=== PATIENT | female | born 1970 | race Two or more races ===

== ENCOUNTER → 2017-09-14 | Outpatient (CLI) | payer OTHER | LOC: M RAD 12:15 | DX: R10.32 Left lower quadrant pain (principal); Z96.9 Presence of functional implant, unspecified | CPT/HCPCS: 74021 ==

== ENCOUNTER → 2017-09-20 | Outpatient (REF) | payer OTHER ==
[2017-09-20 13:35] LABS: AMORPHOUS SEDIMENT SMALL (NEGATIVE); APPEARANCE, URINE CLOUDY (CLEAR); BACTERIA, URINE AUTO 1+ (NEGATIVE); BILIRUBIN, URINE AUTO NEGATIVE (NEGATIVE); BLOOD, URINE BLOOD 1+ (NEGATIVE); COLOR, URINE AMBER (YELLOW); GLUCOSE, URINE (UA) AUTO NEGATIVE (NEGATIVE); KETONE, URINE AUTO TRACE mg/dL (NEGATIVE); LEUKOCYTE ESTERASE, URINE AUTO 1+ (NEGATIVE); MUCUS, URINE SMALL (NEGATIVE); NITRITE, URINE AUTO POSITIVE (NEGATIVE); PROTEIN, URINE AUTO NEGATIVE (NEGATIVE); RBC, URINE AUTO 2 /HPF (0-3); SPECIFIC GRAVITY URINE AUTO 1.027 (1.002-1.035); SQUAMOUS EPITHELIAL CELL UR AU 9 /HPF (0-6); WBC, URINE AUTO 7 /HPF (0-3)
== END ==
LOC: M SMT 13:02
DX: R32 Unspecified urinary incontinence (principal)

== ENCOUNTER 2017-09-27 09:36 | Day surgery (SDC) | payer OTHER ==
[2017-09-27] MEDS: NS 1,000 ML IV (11:18)
[2017-09-27] MEDS ORDERED: LIDOCAINE 2% INJ 100 MG/5 ML SDV (FOR ANES.) As Ordered (12:07)
[2017-09-27] MEDS ORDERED: PROPOFOL 500 MG/50 ML VIAL As Ordered (12:07)
== END 2017-09-27 13:20 | disposition home or self-care (01) ==
LOC: M OPP 09:36
DX: R12 Heartburn (principal); K21.9 Gastro-esophageal reflux disease without esophagitis; M19.90 Unspecified osteoarthritis, unspecified site; M54.2 Cervicalgia; M54.89 Other dorsalgia; M79.7 Fibromyalgia; F32.9 Major depressive disorder, single episode, unspecified; F41.9 Anxiety disorder, unspecified; G43.909 Migraine, unspecified, not intractable, without status migrainosus; Z96.9 Presence of functional implant, unspecified; Z98.1 Arthrodesis status; F17.210 Nicotine dependence, cigarettes, uncomplicated; Z88.8 Allergy status to other drugs, medicaments and biological substances; Z88.1 Allergy status to other antibiotic agents; Z88.2 Allergy status to sulfonamides; Z79.899 Other long term (current) drug therapy
CPT/HCPCS: 43235

== ENCOUNTER → 2017-10-25 | Day surgery (SDC) | payer OTHER | END | disposition home or self-care (01) | LOC: M OPP 10:41 | DX: K59.00 Constipation, unspecified (principal); K92.1 Melena; R12 Heartburn; K21.9 Gastro-esophageal reflux disease without esophagitis; M54.9 Dorsalgia, unspecified; M79.7 Fibromyalgia; F41.9 Anxiety disorder, unspecified; F32.9 Major depressive disorder, single episode, unspecified; G43.909 Migraine, unspecified, not intractable, without status migrainosus; Z97.8 Presence of other specified devices; R32 Unspecified urinary incontinence; Z87.19 Personal history of other diseases of the digestive system; Z98.1 Arthrodesis status; F17.210 Nicotine dependence, cigarettes, uncomplicated; Z88.8 Allergy status to other drugs, medicaments and biological substances; Z88.1 Allergy status to other antibiotic agents; Z88.2 Allergy status to sulfonamides; Z79.899 Other long term (current) drug therapy; Z91.018 Allergy to other foods | CPT/HCPCS: 45378 ==

== ENCOUNTER 2018-01-03 09:41 | Day surgery (SDC) | payer OTHER ==
[2018-01-03] MEDS: NS 1,000 ML IV (10:40)
[2018-01-03] MEDS ORDERED: LIDOCAINE 2% INJ 100 MG/5 ML SDV (FOR ANES.) As Ordered (12:05)
[2018-01-03] MEDS ORDERED: PROPOFOL 500 MG/50 ML VIAL As Ordered (12:05)
== END 2018-01-03 12:53 | disposition home or self-care (01) ==
LOC: M OPP 09:41
DX: K63.5 Polyp of colon (principal); K59.00 Constipation, unspecified; K62.5 Hemorrhage of anus and rectum; K21.9 Gastro-esophageal reflux disease without esophagitis; F41.9 Anxiety disorder, unspecified; F32.9 Major depressive disorder, single episode, unspecified; M79.7 Fibromyalgia; G43.909 Migraine, unspecified, not intractable, without status migrainosus; R32 Unspecified urinary incontinence; Z79.899 Other long term (current) drug therapy; Z88.8 Allergy status to other drugs, medicaments and biological substances; Z91.018 Allergy to other foods; F17.210 Nicotine dependence, cigarettes, uncomplicated; Z98.890 Other specified postprocedural states; Z83.3 Family history of diabetes mellitus; Z96.89 Presence of other specified functional implants
CPT/HCPCS: 45385

== ENCOUNTER → 2018-12-01 | Outpatient (REF) | payer OTHER ==
[~2018-12-01] MED LIST: BACL1TAB9 PO; BUPR15TA PO; DITR5TAB PO; DULC5TAB PO; IMIT50TA PO; LINZ145C PO; LORA1TAB12 PO; MELO7.5T7 PO; MIRA33504 PO; MYRB25TA PO; OMEP40CA2 PO; PREG100CA PO; PRIS50TA PO; RANI1TAB38 PO; SENN1TAB38 PO; SENO8.6T5 PO; SERO1TAB2 PO; TRAZ25TA PO
[2018-12-01 19:26] LABS: APPEARANCE, URINE HAZY (CLEAR); BACTERIA, URINE AUTO 3+ (NEGATIVE); BILIRUBIN, URINE AUTO NEGATIVE (NEGATIVE); BLOOD, URINE BLOOD NEGATIVE (NEGATIVE); COLOR, URINE YELLOW (YELLOW); GLUCOSE, URINE (UA) AUTO NEGATIVE (NEGATIVE); KETONE, URINE AUTO NEGATIVE (NEGATIVE); LEUKOCYTE ESTERASE, URINE AUTO NEGATIVE (NEGATIVE); MUCUS, URINE SMALL (NEGATIVE); NITRITE, URINE AUTO POSITIVE (NEGATIVE); PROTEIN, URINE AUTO NEGATIVE (NEGATIVE); RBC, URINE AUTO 2 /HPF (0-3); SPECIFIC GRAVITY URINE AUTO 1.024 (1.002-1.035); SQUAMOUS EPITHELIAL CELL UR AU 5 /HPF (0-6); UROBILINOGEN, URINE AUTO 0.2 mg/dL (0.0-2.0); WBC, URINE AUTO 2 /HPF (0-3)
== END ==
LOC: M SMT 17:00
PROVIDERS: ATTEND Nurse Practitioner Women's Health
DX: R39.15 Urgency of urination (principal)

== ENCOUNTER → 2019-10-23 | Outpatient (CLI) | payer OTHER ==
[~2019-10-23] MED LIST changes: -LORA1TAB12 PO; +LORA1TAB4 PO; -OMEP40CA2 PO; +OMEP40CA97 PO; +TRAZ1TAB11 PO; -TRAZ25TA PO
--- NOTE | 2019-10-23 15:45 | REP ---
Clinical: Cough. Technique: PA and lateral. Comparison: None. Findings: Mediastinum and cardiac silhouette are normal. Epidural stimulator in the mid thoracic level noted. The lung mayen demonstrate coarsened markings which may reflect chronic change. However bronchitis and chronic reactive airway disease cannot be excluded. No focal consolidation. No effusion. No pneumothorax. Skeletal structures intact. Impression: Cannot exclude bronchitis/chronic reactive airway disease. Electronically Signed by Raudel Melgoza MD 10/23/2019 03:36 P
== END ==
LOC: M LRY 15:11
PROVIDERS: ATTEND Physician Assistant
DX: R05 Cough (principal)

== ENCOUNTER → 2019-10-24 | Outpatient (CLI) | payer OTHER ==
[2019-10-24 12:03] LABS: ALBUMIN 3.8 GM/DL (3.2-5.2); ALT/SGPT 26 U/L (12-78); BILIRUBIN,TOTAL 0.6 MG/DL (0.2-1.0); BLOOD UREA NITROGEN 14 MG/DL (7-18); CALCIUM LEVEL 9.5 MG/DL (8.5-10.1); CARBON DIOXIDE LEVEL 29 MEQ/L (21-32); CHLORIDE LEVEL 104 MEQ/L (98-107); GLOMERULAR FILTRATION RATE > 60.0 (>51); GLUCOSE, FASTING 112 MG/DL (70-100); POTASSIUM SERUM 3.5 MEQ/L (3.5-5.1); SODIUM LEVEL 141 MEQ/L (136-145); TOTAL PROTEIN 6.5 GM/DL (6.4-8.2)
== END ==
LOC: M LAB 10:37
PROVIDERS: ATTEND Nurse Practitioner Family
DX: K21.9 Gastro-esophageal reflux disease without esophagitis (principal)

== ENCOUNTER 2019-11-08 12:16 | Emergency (ER) | payer OTHER ==
[2019-11-08] MEDS ORDERED: METH1TAB40 (12:34)
[2019-11-08] MEDS ORDERED: ALL10TAB29 (12:34)
[2019-11-08] MEDS ORDERED: PREG150C (12:34)
[2019-11-08] MEDS ORDERED: CELE1CAP9 (12:34)
[2019-11-08] MEDS ORDERED: ACETAMINOPHEN 325 MG TAB PO ONE (13:45)
--- NOTE | 2019-11-08 13:48 | REP ---
Left knee four views : There is no fracture or dislocation. Mineralization and joint spaces are normal. There are no calcifications or foreign bodies. Impression: Negative left knee . Electronically Signed by Doc Mckeon MD 11/08/2019 01:40 P
[2019-11-08 14:03] VITALS: BP 106/53
== END 2019-11-08 14:31 | disposition home or self-care (01) ==
LOC: EDBD 12:16 → M ED 12:16
DX: S80.02XA Contusion of left knee, initial encounter (principal); W01.10XA Fall on same level from slipping, tripping and stumbling with subsequent striking against unspecified object, initial encounter; Y92.511 Restaurant or cafe as the place of occurrence of the external cause; Y93.9 Activity, unspecified; Y99.9 Unspecified external cause status; R51 Headache; M79.7 Fibromyalgia; G90.50 Complex regional pain syndrome I, unspecified; K21.9 Gastro-esophageal reflux disease without esophagitis; N32.81 Overactive bladder; M54.9 Dorsalgia, unspecified; F41.9 Anxiety disorder, unspecified; F32.9 Major depressive disorder, single episode, unspecified; Z79.899 Other long term (current) drug therapy; Z88.2 Allergy status to sulfonamides; Z88.8 Allergy status to other drugs, medicaments and biological substances; Z88.1 Allergy status to other antibiotic agents; Z91.018 Allergy to other foods

== ENCOUNTER → 2019-12-09 | Outpatient (REF) | payer OTHER ==
[~2019-12-09] MED LIST changes: +ALL10TAB29; +CELE1CAP9; +METH1TAB40; +PREG150C
[2019-12-09 19:56] LABS: CHLAMYDIA DNA AMPLIFICATION NEGATIVE (NEGATIVE); GC DNA AMPLIFICATION NEGATIVE (NEGATIVE)
== END ==
LOC: M SFHCLERA 16:32
PROVIDERS: ATTEND Physician Assistant Medical
DX: N89.8 Other specified noninflammatory disorders of vagina (principal)

== ENCOUNTER → 2020-04-10 | Outpatient (CLI) | payer OTHER ==
[~2020-04-10] MED LIST changes: -ALL10TAB29; +CETI-24
[2020-05-15 13:40] LABS: COTININE See Separate Report; NICOTINE See Separate Report
== END ==
LOC: M LAB 15:11
PROVIDERS: ATTEND Neurological Surgery
DX: M51.37 Other intervertebral disc degeneration, lumbosacral region (principal); M96.1 Postlaminectomy syndrome, not elsewhere classified; M48.061 Spinal stenosis, lumbar region without neurogenic claudication; M51.26 Other intervertebral disc displacement, lumbar region; M47.12 Other spondylosis with myelopathy, cervical region; M50.30 Other cervical disc degeneration, unspecified cervical region

== ENCOUNTER 2020-07-28 15:11 | Emergency (ER) | payer OTHER ==
[~2020-07-28] VITALS: Ht 170.2 cm; Wt 98.6 kg
[2020-07-28] MEDS ORDERED: NS 1,000 ML IV ONE (16:30)
--- NOTE | 2020-07-28 17:05 | REP ---
INDICATION: Syncope. COMPARISON: None. TECHNIQUE: 4.5 mm contiguous transaxial sections were obtained from the skull base to the cerebral convexities with thin cuts through the posterior fossa without the administration of intravenous contrast. FINDINGS: The ventricles and sulci are consistent with the patient's age. There are no extra-axial fluid collections. There is no mass effect. The deep cerebral white matter is consistent with the patient's age. The orbital and petrous structures, cerebellopontine angles, and posterior fossa are unremarkable. The sella turcica, cavernous, and paracavernous structures are essentially unremarkable. The visualized portions of the paranasal sinuses and mastoid air cells are clear. Images of the skull base show no gross abnormality. IMPRESSION: Essentially unremarkable CT examination of the brain. <Electronically signed by Bao Martin > 07/28/20 [id number]
[2020-07-28 17:26] LABS: BASO # 0.1 10^3/uL (0.0-0.2); BASO % 0.8 % (0.0-1.0); EOS # 0.2 10^3/uL (0.0-0.5); EOS % 1.7 % (0.0-3.0); HEMATOCRIT 46.7 % (36.0-47.0); LYMPH # 2.9 10^3/uL (1.5-5.0); LYMPH % 31.7 % (24.0-44.0); MEAN CORPUSCULAR HGB CONC 34.3 g/dl (32.0-36.5); MEAN CORPUSCULAR VOLUME 84.8 fl (80.0-96.0); MONO # 0.6 10^3/uL (0.0-0.8); MONO % 6.2 % (0.0-5.0); NEUTROPHILS # 5.3 10^3/uL (1.5-8.5); NEUTROPHILS % 59.4 % (36.0-66.0); PLATELET COUNT, AUTOMATED 284 10^3/uL (150-450); RED BLOOD COUNT 5.51 10^6/uL (4.00-5.40)
[2020-07-28 17:37] LABS: INR 1.04; PROTHROMBIN TIME 13.8 SECONDS (12.5-14.3)
[2020-07-28 17:38] LABS: PARTIAL THROMBOPLASTIN TIME 27.1 SECONDS (24.2-38.5)
[2020-07-28 17:47] LABS: AMPHETAMINES LEVEL URINE NEGATIVE (NEGATIVE); BARBITURATES URINE NEGATIVE (NEGATIVE); BENZODIAZEPINES URINE NEGATIVE (NEGATIVE); CANNABINOIDS URINE NEGATIVE (NEGATIVE); COCAINE METABOLITE URINE NEGATIVE (NEGATIVE); METHADONE URINE NEGATIVE (NEGATIVE); OPIATES URINE NEGATIVE (NEGATIVE); PHENCYCLIDINE URINE NEGATIVE (NEGATIVE)
[2020-07-28 18:09] LABS: BLOOD UREA NITROGEN 23 MG/DL (7-18); CALCIUM LEVEL 9.4 MG/DL (8.5-10.1); CARBON DIOXIDE LEVEL 25 MEQ/L (21-32); CHLORIDE LEVEL 107 MEQ/L (98-107); CK-MB VALUE MASS < 1.0 NG/ML (<3.6); CPK CREATINE PHOSPHOKINASE 127 U/L (26-192); CREATININE FOR GFR 0.84 MG/DL (0.55-1.30); GLOMERULAR FILTRATION RATE > 60.0 (>51); GLUCOSE, FASTING 97 MG/DL (70-100); MB/CK RELATIVE INDEX 0.79 (< OR =4); POTASSIUM SERUM 3.8 MEQ/L (3.5-5.1); SODIUM LEVEL 140 MEQ/L (136-145); THYROID STIMULATING HORMONE 0.931 uIU/ML (0.358-3.740); TROPONIN I < 0.02 NG/ML (< 0.10)
[2020-07-28] MEDS ORDERED: CIPROFLOXACIN 400 MG in IV 1 EA IV ONE (18:30)
[2020-07-28] MEDS ORDERED: ACETAMINOPHEN 325 MG TAB PO ONE (20:00)
[2020-07-28] MEDS ORDERED: ONDANSETRON 4MG/2ML VIAL IV ONE (20:00)
[2020-07-28] MEDS ORDERED: diphenhydrAMINE 50MG/ML VIAL (J1200) IV ONE (20:15)
[2020-07-28] MEDS ORDERED: AUGM875T28 PO ×2 (20:54→21:15)
[2020-07-28] MEDS ORDERED: AUGMENTIN 875 MG TAB PO ONE (21:00)
[2020-07-28 21:11] VITALS: BP 138/85
--- NOTE | 2020-07-29 10:18 | ECGEPIP ---
[facility] - ED Test Date: 2020-07-28 Pat Name: FER HERNADEZ Department: Room: - Gender: Female [employer]: fatmata : 1970 Requested By: JAYME EL PA-C Order Number: [id number] Reading MD: Danielito Figueroa Measurements Intervals Makinen Rate: 65 P: 9 MA: 162 QRS: 5 QRSD: 88 T: 48 QT: 436 QTc: 454 Interpretive Statements SINUS RHYTHM WITH OCCASIONAL VENTRICULAR PREMATURE COMPLEXES NONSPECIFIC T-WAVE ABNORMALITY NO PRIORS FOR COMPARISON Electronically Signed on 07-29-2020 10:18:19 EST by Danielito Figueroa
== END 2020-07-28 21:20 | disposition home or self-care (01) ==
LOC: M ED 15:11
DX: N10 Acute pyelonephritis (principal); E86.0 Dehydration; Z88.1 Allergy status to other antibiotic agents; Z88.2 Allergy status to sulfonamides; Z88.6 Allergy status to analgesic agent; Z88.8 Allergy status to other drugs, medicaments and biological substances; Z91.018 Allergy to other foods
CPT/HCPCS: 70450; 80048; 80307; 81001; 82550; 82553; 83735; 84439; 84443; 85025; 85610; 85730; 87088; 87186; 93005; 96361; 96365; 96366; 96375; 99284; J0744; J1200; J2405

== ENCOUNTER 2021-03-04 14:10 | Emergency (ER) | payer OTHER ==
[~2021-03-04] VITALS: Ht 170.2 cm; Wt 105.5 kg
[~2021-03-04 14:10] MED LIST changes: +AUGM875T28 PO; +METH-1164; -METH1TAB40; +OMEP40CA4 PO; -OMEP40CA97 PO
[2021-03-04] MEDS ORDERED: HYDR50TA70 (14:23)
[2021-03-04] MEDS ORDERED: HYDR-4571 (14:23)
[2021-03-04] MEDS ORDERED: methocarbamoL 750 MG TAB PO ONE (20:10)
[2021-03-04] MEDS ORDERED: PERCOCET 5MG/325MG TAB PO ONE (20:10)
[2021-03-04 22:29] VITALS: BP 128/87
== END 2021-03-04 22:31 | disposition home or self-care (01) ==
LOC: M ED 14:10
DX: M54.9 Dorsalgia, unspecified (principal); R51.9 Headache, unspecified; K21.9 Gastro-esophageal reflux disease without esophagitis; N32.81 Overactive bladder; F17.200 Nicotine dependence, unspecified, uncomplicated; Z79.899 Other long term (current) drug therapy; Z88.2 Allergy status to sulfonamides; Z88.8 Allergy status to other drugs, medicaments and biological substances; Z88.1 Allergy status to other antibiotic agents; Z91.02 Food additives allergy status

== ENCOUNTER → 2021-04-29 | Outpatient (REF) | payer OTHER ==
[~2021-04-29] MED LIST changes: +HYDR-4571; +HYDR50TA70
== END ==
LOC: M WUC 15:36
PROVIDERS: ATTEND Physician Assistant
DX: R11.2 Nausea with vomiting, unspecified (principal); Z20.828 Contact with and (suspected) exposure to other viral communicable diseases

== ENCOUNTER → 2021-07-23 | Outpatient (CLI) | payer OTHER | LOC: M LABSMTC 11:13 | PROVIDERS: ATTEND Neurological Surgery | DX: Z01.812 Encounter for preprocedural laboratory examination (principal); Z20.822 Contact with and (suspected) exposure to COVID-19 ==

== ENCOUNTER → 2021-10-30 | Outpatient (CLI) | payer OTHER | LOC: M LABSMTC 10:47 | PROVIDERS: ATTEND Neurological Surgery | DX: M51.37 Other intervertebral disc degeneration, lumbosacral region (principal) ==